=== PATIENT | male | born 1955 | race Caucasian/White ===

== ENCOUNTER 2021-05-14 08:19 | Inpatient (IN) | payer MEDICARE, OTHER ==
[2021-05-14 09:12] LABS: #Basophils 0.1 10x3/uL (0.0-0.2); #Eosinphils 0.2 10x3/uL (0.0-0.5); #Monocytes 1.8 10x3/uL (0.0-1.1); %Basophils 0.3 % (0.0-2.0); %Eosinophils 1.3 % (0.0-6.0); %Lymphocytes 5.7 % (18.0-47.0); %Monocytes 10.3 % (0.0-10.0); %Neutrophils 81.9 % (40.0-75.0); Hemoglobin 12.4 g/dL (13.5-17.5); Mean Corpuscular Hemoglobin 29.7 pg (27.0-33.0); Mean Corpuscular Volume 92.8 fl (81.2-95.1); Platelet Count 247 10x3/uL (150-450); Red Blood Cell (RBC) Count 4.18 10x6/uL (4.32-5.72)
[2021-05-14 09:24] LABS: ALT (SGPT) 16 U/L (8-55); AST (SGOT) 19 U/L (5-34); Albumin 4.1 g/dL (3.4-4.8); Alkaline Phosphatase 90 U/L (40-110); Anion Gap 20 mmol/L (10-20); BUN (Urea Nitrogen) 35 mg/dL (8.4-25.7); Bilirubin, Total 0.8 mg/dL (0.2-1.2); Calc. Creatinine Clearance 0 mL/min (70-130); Calcium 9.3 mg/dL (7.8-10.44); Carbon Dioxide 32 mmol/L (23-31); Chloride 94 mmol/L (98-107); Globulin 3.6 g/dL (2.4-3.5); Glucose 146 mg/dL (80-115); Potassium 4.6 mmol/L (3.5-5.1); Protein, Total 7.7 g/dL (5.8-8.1); Sodium 141 mmol/L (136-145)
[2021-05-14] MEDS ORDERED: Furosemide 40 MG/4 ML VIAL ONE (09:24)
[2021-05-14] MEDS ORDERED: Cefepime 2 GM VIAL ONE (09:38)
[2021-05-14 10:09] LABS: Bilirubin Neg (Negative); Blood, Urine Negative (Negative); Clarity Clear (Clear); Glucose, Urine (Dipstick) Normal (Negative); Ketone, Urine Negative (Negative); Leukocyte Negative (Negative); Nitrite Negative (Negative); Protein, Urine (Dipstick) Negative (Neg-Trace); Specific Gravity, Urine 1.005 (1.002-1.036); Urobilinogen Normal mg/dL (Less than 2)
[2021-05-14 10:10] LABS: SARS-CoV-2 NAA Rapid Test Not Detected (NotDetected)
[2021-05-14] MEDS ORDERED: HumaLOG 300 UNITS/3 ML VIAL SC PRN (11:20)
[2021-05-14] MEDS ORDERED: Dextrose 50% Abboject 50 ML SYRINGE SLOW IVP PRN (11:20)
[2021-05-14] MEDS ORDERED: Dextrose 5% in Water 1,000 ML IV PRN (11:20)
[2021-05-14] MEDS ORDERED: Insulin Regular 300 UNITS/3 ML VIAL SC PRN (11:20)
[2021-05-14 11:54] LABS: INR-International Normal Ratio 1.5; Prothrombin Time 16.7 sec (9.5-12.1)
[2021-05-14 12:06] LABS: Troponin I Less than 0.010 ng/mL (< 0.028)
[2021-05-14 12:09] VITALS: BMI 48.4
[2021-05-14 15:28] LABS: Troponin I 0.012 ng/mL (< 0.028)
[2021-05-14] MEDS ORDERED: Warfarin Sodium 10 MG TAB PO SCH (20:00)
[2021-05-14] MEDS ORDERED: VANCOMYCIN 2 GRAM/400 ML BAG 2 GM in Premix Bag 1 BAG IVPB SCH (20:00)
[2021-05-14] MEDS ORDERED: Atorvastatin Calcium 10 MG TAB PO SCH (21:00)
[2021-05-14] MEDS: Famotidine 20 MG TAB PO SCH (21:42)
[2021-05-14] MEDS: Cefepime 1 GM in Sodium Chloride 0.9% 100 ML IVPB SCH (23:30)
[2021-05-15 05:20] LABS: INR-International Normal Ratio 1.5
[2021-05-15 05:29] LABS: Anion Gap 16 mmol/L (10-20); BUN (Urea Nitrogen) 37 mg/dL (8.4-25.7); Calc. Creatinine Clearance 131 mL/min (70-130); Calcium 9.3 mg/dL (7.8-10.44); Carbon Dioxide 33 mmol/L (23-31); Chloride 96 mmol/L (98-107); Glucose 134 mg/dL (80-115); Potassium 4.2 mmol/L (3.5-5.1); Sodium 141 mmol/L (136-145)
[2021-05-15 05:34] LABS: #Basophils 0.1 10x3/uL (0.0-0.2); #Eosinphils 0.3 10x3/uL (0.0-0.5); #Monocytes 1.4 10x3/uL (0.0-1.1); #Neutrophils 10.4 10x3/uL (1.5-8.4); %Basophils 0.6 % (0.0-2.0); %Eosinophils 2.5 % (0.0-6.0); %Lymphocytes 8.5 % (18.0-47.0); %Monocytes 10.6 % (0.0-10.0); %Neutrophils 77.3 % (40.0-75.0); Hemoglobin 11.6 g/dL (13.5-17.5); Mean Corpuscular HGB CONC 31.6 g/dL (32.0-36.0); Mean Corpuscular Hemoglobin 29.9 pg (27.0-33.0); Mean Corpuscular Volume 94.6 fl (81.2-95.1); Mean Platelet Volume 10.1 fl (7.4-10.4); Platelet Count 220 10x3/uL (150-450); Red Blood Cell (RBC) Count 3.88 10x6/uL (4.32-5.72); White Blood Cell (WBC) Count 13.4 10x3/uL (3.5-10.5)
[2021-05-15] MEDS ORDERED: Levothyroxine 150 MCG TAB PO SCH (06:00)
[2021-05-15] MEDS ORDERED: Budesonide 0.5 MG/2 ML NEB NEB SCH (07:00)
[2021-05-15] MEDS ORDERED: VANCOMYCIN 1.75 GM/350 ML BAG 1.75 GM in Premix Bag 1 BAG IVPB SCH (08:00)
[2021-05-15] MEDS: Famotidine 20 MG TAB PO SCH (08:50)
[2021-05-15] MEDS ORDERED: Losartan Potassium 50 MG TAB PO SCH (09:00)
[2021-05-15] MEDS ORDERED: Allopurinol 300 MG TAB PO SCH (09:00)
[2021-05-15] MEDS ORDERED: Furosemide 40 MG/4 ML VIAL SLOW IVP SCH (09:00)
[2021-05-15] MEDS ORDERED: Aspirin 81 mg Enteric Coated Tablet PO SCH (09:00)
[2021-05-15] MEDS: Cefepime 1 GM in Sodium Chloride 0.9% 100 ML IVPB SCH (11:52)
[2021-05-15 12:30] LABS: Hemoglobin A1c 6.6 % (4.0-6.0)
[2021-05-15 13:05] VITALS: BP 107/59; TEMP 97.3
[2021-05-15] MEDS ORDERED: Warfarin Sodium 10 MG TAB PO SCH (17:00)
== END 2021-05-15 14:15 | disposition home or self-care (01) | DRG 871 ==
LOC: CSHERS 08:19 → CSHTELE 11:40
PROVIDERS: ADMIT Internal Medicine; ATTEND Internal Medicine
DX: A41.9 Sepsis, unspecified organism (principal); I50.23 Acute on chronic systolic (congestive) heart failure; J44.1 Chronic obstructive pulmonary disease with (acute) exacerbation; Z68.42 Body mass index [BMI] 45.0-49.9, adult; I25.10 Atherosclerotic heart disease of native coronary artery without angina pectoris; E78.5 Hyperlipidemia, unspecified; Z20.822 Contact with and (suspected) exposure to COVID-19; E66.01 Morbid (severe) obesity due to excess calories; I11.0 Hypertensive heart disease with heart failure; E11.9 Type 2 diabetes mellitus without complications; G47.33 Obstructive sleep apnea (adult) (pediatric); I44.7 Left bundle-branch block, unspecified; Z79.899 Other long term (current) drug therapy; Z79.01 Long term (current) use of anticoagulants; Z79.82 Long term (current) use of aspirin; Z87.891 Personal history of nicotine dependence; Z79.51 Long term (current) use of inhaled steroids; Z95.5 Presence of coronary angioplasty implant and graft; Z98.0 Intestinal bypass and anastomosis status; Z98.890 Other specified postprocedural states
CPT/HCPCS: 36415; 36416; 71045; 80048; 80053; 81003; 83036; 83605; 83880; 84484; 85025; 85610; 87040; 87081; 87086; 87430; 93005; 93010; 93306; 94660; 94760; 96365; 96367; J0692; J1940; J3370; J3490; J7620; J7626

== ENCOUNTER 2021-06-04 07:50 | Outpatient (CLI) | payer OTHER | END 2021-06-04 07:51 | disposition home or self-care (01) | LOC: CSHCP 07:50 | PROVIDERS: ATTEND Internal Medicine Pulmonary Disease | DX: R06.02 Shortness of breath (principal); R94.2 Abnormal results of pulmonary function studies | CPT/HCPCS: 94060; 94729; 94760 ==

== ENCOUNTER 2021-07-04 17:35 | Inpatient (IN) | payer OTHER ==
[2021-07-04 19:02] LABS: #Eosinphils 0.2 10x3/uL (0.0-0.5); #Monocytes 1.4 10x3/uL (0.0-1.1); #Neutrophils 10.2 10x3/uL (1.5-8.4); %Basophils 0.3 % (0.0-2.0); %Eosinophils 1.8 % (0.0-6.0); %Lymphocytes 10.6 % (18.0-47.0); %Monocytes 10.4 % (0.0-10.0); %Neutrophils 76.3 % (40.0-75.0); Hemoglobin 11.4 g/dL (13.5-17.5); Mean Corpuscular HGB CONC 31.9 g/dL (32.0-36.0); Mean Corpuscular Hemoglobin 29.4 pg (27.0-33.0); Platelet Count 244 10x3/uL (150-450); RBC Distribution Width 15.6 % (11.5-14.5); Red Blood Cell (RBC) Count 3.88 10x6/uL (4.32-5.72); White Blood Cell (WBC) Count 13.3 10x3/uL (3.5-10.5)
[2021-07-04 19:09] LABS: INR-International Normal Ratio 2.2; PTT 36.8 sec (22.0-33.0); Prothrombin Time 22.5 sec (9.5-12.1)
[2021-07-04 19:12] LABS: ALT (SGPT) 12 U/L (8-55); AST (SGOT) 17 U/L (5-34); Albumin 3.8 g/dL (3.4-4.8); Alkaline Phosphatase 80 U/L (40-110); Anion Gap 17 mmol/L (10-20); BUN (Urea Nitrogen) 37 mg/dL (8.4-25.7); Bilirubin, Total 0.6 mg/dL (0.2-1.2); Calc. Creatinine Clearance 0 mL/min (70-130); Calcium 9.8 mg/dL (7.8-10.44); Carbon Dioxide 34 mmol/L (23-31); Chloride 89 mmol/L (98-107); Globulin 3.9 g/dL (2.4-3.5); Glucose 119 mg/dL (80-115); Potassium 4.3 mmol/L (3.5-5.1); Protein, Total 7.7 g/dL (5.8-8.1); Sodium 136 mmol/L (136-145)
[2021-07-04] MEDS ORDERED: Acetaminophen 325 MG TAB PO PRN (22:07)
[2021-07-04] MEDS ORDERED: VANCOMYCIN 2 GRAM/400 ML BAG IVPB SCH (22:15)
[2021-07-04 22:34] VITALS: BMI 47.9
[2021-07-04] MEDS ORDERED: Warfarin Sodium 10 MG TAB PO SCH (23:00)
[2021-07-04] MEDS ORDERED: cefTRIAXone\\ROCEPHIN 2 GM in Sodium Chloride 0.9% 100 ML IVPB SCH (23:00)
[2021-07-04] MEDS ORDERED: VANCOMYCIN 2 GRAM/400 ML BAG 2 GM in Premix Bag 1 BAG IVPB SCH (23:59)
[2021-07-05] MEDS ORDERED: HYDROcodone/Acetaminophen 5/325 mg Tablet PO PRN (01:06)
[2021-07-05 03:58] LABS: #Basophils 0.1 10x3/uL (0.0-0.2); #Eosinphils 0.3 10x3/uL (0.0-0.5); #Monocytes 1.3 10x3/uL (0.0-1.1); #Neutrophils 9.5 10x3/uL (1.5-8.4); %Basophils 0.5 % (0.0-2.0); %Eosinophils 2.6 % (0.0-6.0); %Lymphocytes 12.7 % (18.0-47.0); %Monocytes 10.4 % (0.0-10.0); %Neutrophils 73.3 % (40.0-75.0); Hemoglobin 10.9 g/dL (13.5-17.5); Mean Corpuscular HGB CONC 31.4 g/dL (32.0-36.0); Mean Corpuscular Hemoglobin 29.2 pg (27.0-33.0); Mean Platelet Volume 10.1 fl (7.4-10.4); Platelet Count 228 10x3/uL (150-450); RBC Distribution Width 15.4 % (11.5-14.5); Red Blood Cell (RBC) Count 3.73 10x6/uL (4.32-5.72); White Blood Cell (WBC) Count 12.9 10x3/uL (3.5-10.5)
[2021-07-05 04:13] LABS: BUN (Urea Nitrogen) 36 mg/dL (8.4-25.7); Calc. Creatinine Clearance 117 mL/min (70-130); Calcium 9.4 mg/dL (7.8-10.44); Glucose 125 mg/dL (80-115)
[2021-07-05 04:23] LABS: Anion Gap 20 mmol/L (10-20); Carbon Dioxide 34 mmol/L (23-31); Chloride 92 mmol/L (98-107); Potassium 4.5 mmol/L (3.5-5.1); Sodium 141 mmol/L (136-145)
[2021-07-05] MEDS ORDERED: Levothyroxine 150 MCG TAB PO SCH (06:00)
[2021-07-05] MEDS ORDERED: metFORMIN 500 MG TAB PO SCH (08:00)
[2021-07-05 08:23] VITALS: BP 96/55; TEMP 96.9
[2021-07-05] MEDS ORDERED: Aspirin 81 mg Enteric Coated Tablet PO SCH (09:00)
[2021-07-05] MEDS ORDERED: Allopurinol 300 MG TAB PO SCH (09:00)
[2021-07-05] MEDS ORDERED: Potassium Chloride 20 MEQ TAB PO SCH (09:00)
[2021-07-05] MEDS ORDERED: Metolazone 5 MG TAB PO SCH (09:00)
[2021-07-05] MEDS ORDERED: Montelukast Sodium 10 mg Tablet PO SCH (09:00)
[2021-07-05] MEDS ORDERED: Losartan Potassium 50 MG TAB PO SCH (09:00)
[2021-07-05 16:42] LABS: SARS-CoV-2 PCR by NAA Not Detected (NotDetected)
[2021-07-05] MEDS ORDERED: Warfarin Sodium 10 MG TAB PO SCH (17:00)
[2021-07-05] MEDS ORDERED: Atorvastatin Calcium 10 MG TAB PO SCH (21:00)
[2021-07-05] MEDS ORDERED: Budesonide 0.5 MG/2 ML NEB NEB SCH (21:00)
== END 2021-07-05 12:05 | disposition home or self-care (01) | DRG 603 ==
LOC: CSHERS 17:35 → CSHTELE 21:53 → OBSVTOIN 22:07
PROVIDERS: ADMIT Family Medicine; ATTEND Family Medicine
DX: L03.115 Cellulitis of right lower limb (principal); I50.22 Chronic systolic (congestive) heart failure; I13.0 Hypertensive heart and chronic kidney disease with heart failure and stage 1 through stage 4 chronic kidney disease, or unspecified chronic kidney disease; J96.10 Chronic respiratory failure, unspecified whether with hypoxia or hypercapnia; Z68.42 Body mass index [BMI] 45.0-49.9, adult; I25.10 Atherosclerotic heart disease of native coronary artery without angina pectoris; E78.5 Hyperlipidemia, unspecified; J44.9 Chronic obstructive pulmonary disease, unspecified; I95.9 Hypotension, unspecified; E66.01 Morbid (severe) obesity due to excess calories; G47.33 Obstructive sleep apnea (adult) (pediatric); N18.30 Chronic kidney disease, stage 3 unspecified; E11.22 Type 2 diabetes mellitus with diabetic chronic kidney disease; Z20.822 Contact with and (suspected) exposure to COVID-19; M10.9 Gout, unspecified; Z79.01 Long term (current) use of anticoagulants; Z79.82 Long term (current) use of aspirin; Z79.84 Long term (current) use of oral hypoglycemic drugs; Z98.890 Other specified postprocedural states; Z87.891 Personal history of nicotine dependence; Z95.5 Presence of coronary angioplasty implant and graft; Z86.718 Personal history of other venous thrombosis and embolism; Z79.899 Other long term (current) drug therapy
CPT/HCPCS: 36415; 80048; 80053; 83605; 83735; 85025; 85610; 85730; 87040; 94760; 96365; J0696; J3370; J3490; U0003; U0005

== ENCOUNTER 2021-11-06 12:38 | Outpatient (CLI) | payer OTHER | END 2021-11-06 12:39 | disposition home or self-care (01) | LOC: CSHRAD 12:38 | PROVIDERS: ATTEND Internal Medicine Pulmonary Disease | DX: R06.02 Shortness of breath (principal) | CPT/HCPCS: 76000 ==

== ENCOUNTER 2021-11-06 14:07 | Outpatient (CLI) | payer OTHER ==
[2021-11-06 14:47] LABS: Actual Bicarbonate (HCO3a) 34.1 mEq/L (22-28); Base Excess (BEa) 9.2 mEq/L (-2.0 to +3.0); CO2 Tension 47.9 mmHg (35.0-45.0); Calcium, Ionized (arterial) 1.12 mmol/L (1.12-1.30); Carboxyhemoglobin (COHb) 0.6 gm% (0.0-3.0); Hemoglobin (Hb) 11.8 g/dL (14.0-18.0); O2 Tension (PaO2), arterial 69.1 mmHg (> 80.0); Puncture Site RBA; pH, Arterial 7.47 (7.35-7.45)
[2021-11-06 14:48] LABS: ALV-art Gradient 20.755 mmHg (0-20)
== END 2021-11-06 14:08 | disposition home or self-care (01) ==
LOC: CSHRAD 14:07
PROVIDERS: ATTEND Internal Medicine Pulmonary Disease
DX: R06.02 Shortness of breath (principal)
CPT/HCPCS: 36600; 76000; 82805